=== PATIENT | female | born 1985 | race Caucasian/White ===

== ENCOUNTER 2017-01-12 18:33 | Observation (INO) ==
[2017-01-12] MEDS ORDERED: IOPAMIDOL 100 ML BOTTLE IJ ONE (18:34)
[2017-01-12] MEDS ORDERED: HYDROmorphone 2 MG/ML SYRINGE IV PRN (18:57)
[2017-01-12] MEDS ORDERED: 0.9 % SODIUM CHLORIDE 2,000 ML IV ONE (18:57)
[2017-01-12] MEDS ORDERED: ONDANSETRON 4 MG/2 ML VIAL IV ONE ×2 (18:57→21:02)
[2017-01-12 19:54] LABS: Basophils # (Auto) 0 K/mcL (0.0-0.3); Basophils % (Auto) 0.3 % (0.0-2.0); Eosinophils # (Auto) 0.3 K/mcL (0.0-0.7); Eosinophils % (Auto) 2.1 % (0.0-7.0); Granulocytes % (Auto) 58.9 % (38.0-78.0); Lymphocytes # (Auto) 4.9 K/mcL (1.5-4.8); Lymphocytes % (Auto) 32.7 % (15.5-49.0); Mean Cell Volume 91.4 fL (80.0-100.0); Mean Corpuscular HGB Conc 33.5 g/dL (31.0-36.0); Mean Corpuscular Hemoglobin 30.6 pg (26.0-34.0); Monocytes # (Auto) 0.9 K/mcL (0.1-0.9); Platelet Count 405 K/mcL (140-440); RBC 4.63 M/mcL (4.00-5.20); Red Cell Distribution Width 13.4 % (11.5-14.5)
[2017-01-12 20:07] LABS: ALT/SGPT 12 U/l (0-40); Albumin 4.5 gm/dL (3.2-5.2); Albumin/Globulin Ratio 1.4 (1.0-2.3); Alkaline Phosphatase 89 U/L (39-117); Blood Urea Nitrogen 14 mg/dl (6-20); Lipase 28 U/L (7-60)
--- NOTE | 2017-01-12 20:41 | Emergency Department Note ---
GI Bleed HPI - General Chief complaint: Rectal Bleed Stated complaint: Rectal bleed Time Seen by Provider: 01/12/17 18:34 Source: patient Mode of arrival: ambulatory Limitations: no limitations - History of Present Illness HPI Narrative: 31-year-old female with a cramping belly pain since this morning. She is also complaining of blood clots with diarrhea and maroon colored blood in stool all day today. No fevers but having some hot flashes and headache bilateral temples. She denies any recent hemorrhoids but did have them with her second child. No shortness of breath dysuria or other symptoms - Related Data Home Medications Medication Instructions Recorded Confirmed Bupropion Unknown Dose 01/12/17 Estradiol [Estrace] 1 mg PO DAILY 01/12/17 01/12/17 lamoTRIgine [Lamictal] 200 mg PO HS 01/12/17 01/12/17 Allergies Allergy/AdvReac Type Severity Reaction Status Date / Time Amoxicillin [From Augmentin] AdvReac Intermediate Rash Verified 01/12/17 18:36 clavulanic acid AdvReac Intermediate Rash Verified 01/12/17 18:36 [From Augmentin] latex AdvReac Intermediate Rash Verified 01/12/17 18:36 prednisone AdvReac Intermediate Muscle Pain Verified 01/12/17 18:36 ropinirole AdvReac Intermediate Confusion Verified 01/12/17 18:36 Review of Systems All systems ED: reviewed and negative except as stated. Past Medical History - Past Medical History Attestation: Yes: The following information was validated with the patient. Medical history: Reports: no medical history Surgical history ED: Reports: appendectomy, cholecystectomy, hysterectomy, orthopedic, other (Bilateral carpal tunnel) BARTENDERS history: Reports: bilateral tubal ligation - Social History smoking status: Current every day smoker Physical Exam Normocephalic atraumatic. Conjunctive clear sclerae nonicteric. No nasal discharge or congestion. Oropharynx pink and moist. Neck is supple without lymphadenopathy or thyromegaly. Heart is regular rate and rhythm no murmur appreciated. Lungs are clear to auscultation bilaterally without wheezes rales rhonchi or respiratory distress. Abdomen is soft mildly diffusely tender but no point tenderness. No distention rigidity peritoneal signs. No CVA tenderness. Rectal exam shows old hemorrhoid tag externally. Possible internal hemorrhoids palpated as well but unclear. Hemoccult positive but unnecessary with small clots on digital exam. No pedal edema. +2 radial pulse. Alert and oriented. No dysarthria ataxia or tremor - General Limitations: no limitations Course Vital Signs Temperature 97.3 F 01/12/17 18:34 Pulse Rate 84 01/12/17 18:34 Respiratory Rate 16 01/12/17 18:34 Blood Pressure 132/85 01/12/17 18:34 Pulse Oximetry (%) 97 01/12/17 18:34 Temperature 97.3 F 01/12/17 18:34 Pulse Rate 73 01/12/17 21:01 Respiratory Rate 16 01/12/17 18:34 Blood Pressure 108/63 01/12/17 21:01 Pulse Oximetry (%) 96 01/12/17 21:01 GI Bleed - Lab Data Lab results reviewed: Yes I reviewed the patient's lab results. Result diagrams: 01/12/17 19:14 01/12/17 19:14 Lab Results 01/12/17 01/12/17 01/12/17 Range/Units 19:14 19:14 19:14 WBC 15.1 H (4.5-11.0) K/mcL RBC 4.63 (4.00-5.20) M/mcL Hgb 14.2 (12.0-15.0) g/dL Hct 42.3 (36.0-48.0) % POC Hct 41.0 (36.0-48.0) % MCV 91.4 (80.0-100.0) fL MCH 30.6 (26.0-34.0) pg MCHC 33.5 (31.0-36.0) g/dL RDW 13.4 (11.5-14.5) % Plt Count 405 (140-440) K/mcL MPV 8.0 (7.4-10.4) fL Gran % 58.9 (38.0-78.0) % Lymph % (Auto) 32.7 (15.5-49.0) % [place] % (Auto) 6.0 (1.0-12.0) % Eos % (Auto) 2.1 (0.0-7.0) % Baso % (Auto) 0.3 (0.0-2.0) % Gran # 8.9 H (1.8-8.0) K/mcL Lymph # (Auto) 4.9 H (1.5-4.8) K/mcL [place] # (Auto) 0.9 (0.1-0.9) K/mcL Eos # (Auto) 0.3 (0.0-0.7) K/mcL Baso # (Auto) 0 (0.0-0.3) K/mcL POC PT 12.2 (11.9-14.5) sec POC INR 1.0 (0.9-1.2) VBG Lactic Acid (0.5-2.2) mmol/L POC Sodium 139 (133-145) mmol/L Sodium 137 (133-145) mmol/L POC Potassium 3.6 (3.3-5.1) mmol/L Potassium 3.9 (3.3-5.1) mmol/L POC Chloride 101 (96-108) mmol/L Chloride 98 (96-108) mmol/L Carbon Dioxide 27 (22-30) mmol/L POC Total CO2 27 (22-30) mmol/L Anion Gap 12.0 (8-16) POC BUN 13 (6-20) mg/dl BUN 14 (6-20) mg/dl Creatinine 0.8 (0.6-1.1) mg/dl POC Creatinine 0.8 (0.6-1.1) mg/dl GFR Calculation 97 Glucose 102 (70-105) mg/dL POC Glucose 98 (70-105) mg/dL Calcium 9.3 (8.6-10.4) mg/dl POC WB Ioniz Calcium 1.13 L (1.16-1.32) mmol/L Total Bilirubin < 0.2 (0.0-1.0) mg/dL AST 14 (0-37) U/l ALT 12 (0-40) U/l Alkaline Phosphatase 89 (39-117) U/L Total Protein 7.7 (5.9-8.4) gm/dL Albumin 4.5 (3.2-5.2) gm/dL Globulin 3.2 (2.2-3.7) gm/dL Albumin/Globulin Ratio 1.4 (1.0-2.3) Lipase 28 (7-60) U/L // Range/Units 19:14 WBC (4.5-11.0) K/mcL RBC (4.00-5.20) M/mcL Hgb (12.0-15.0) g/dL Hct (36.0-48.0) % POC Hct (36.0-48.0) % MCV (80.0-100.0) fL MCH (26.0-34.0) pg MCHC (31.0-36.0) g/dL RDW (11.5-14.5) % Plt Count (140-440) K/mcL MPV (7.4-10.4) fL Gran % (38.0-78.0) % Lymph % (Auto) (15.5-49.0) % [place] % (Auto) (1.0-12.0) % Eos % (Auto) (0.0-7.0) % Baso % (Auto) (0.0-2.0) % Gran # (1.8-8.0) K/mcL Lymph # (Auto) (1.5-4.8) K/mcL [place] # (Auto) (0.1-0.9) K/mcL Eos # (Auto) (0.0-0.7) K/mcL Baso # (Auto) (0.0-0.3) K/mcL POC PT (11.9-14.5) sec POC INR (0.9-1.2) VBG Lactic Acid 0.8 (0.5-2.2) mmol/L POC Sodium (133-145) mmol/L Sodium (133-145) mmol/L POC Potassium (3.3-5.1) mmol/L Potassium (3.3-5.1) mmol/L POC Chloride (96-108) mmol/L Chloride (96-108) mmol/L Carbon Dioxide (22-30) mmol/L POC Total CO2 (22-30) mmol/L Anion Gap (8-16) POC BUN (6-20) mg/dl BUN (6-20) mg/dl Creatinine (0.6-1.1) mg/dl POC Creatinine (0.6-1.1) mg/dl GFR Calculation Glucose (70-105) mg/dL POC Glucose (70-105) mg/dL Calcium (8.6-10.4) mg/dl POC WB Ioniz Calcium (1.16-1.32) mmol/L Total Bilirubin (0.0-1.0) mg/dL AST (0-37) U/l ALT (0-40) U/l Alkaline Phosphatase (39-117) U/L Total Protein (5.9-8.4) gm/dL Albumin (3.2-5.2) gm/dL Globulin (2.2-3.7) gm/dL Albumin/Globulin Ratio (1.0-2.3) Lipase (7-60) U/L - Radiology Data Radiology results reviewed: Yes I reviewed the patient's radiology results. CT scan of the abdomen pelvis with contrast shows descending colon thickening consistent with colitis. No abscess or other pathology seen Disposition Pt seen by TAPE RECORDER MECHANIC/PA only: No Clinical Impression: Lower gastrointestinal hemorrhage, Colitis Summary: Initially worked up with laboratory and CT scan of the abdomen and pelvis with contrast for rectal bleed. Started Zofran pain medicine and IV fluids in the interim She is symptomatic with lightheadedness, headache, crampy abdominal pain. Elevated white blood cell count of 15 in the setting of CT scan showing descending colitis. Discussed scenario with Dr. Sahu in GI. Suspect infectious colitis versus inflammatory bowel disease versus hemorrhoids. Symptomatology plus white count suggest infectious cause-stool culture already ordered with C. difficile. He suggested that we could do further workup as an outpatient however the patient is still symptomatic with cramping and lightheadedness and so I am uncomfortable with sending her home. He is agreeable to being available for further consultation/care and workup as needed I discussed the scenario further with Dr. Momo Boothe, hospitalist-expressing my concerns, he agreed to accept the patient for further care and recommended we start IV antibiotics for infectious colitis. IV ciprofloxacin and Flagyl ordered in the ER Disposition: Xfer As Inpt ([facility]) Condition: Serious Referrals: Mere Barragan ARNP [Primary Care Provider] - Bartolome Sahu DO [Physician] -
[2017-01-12] MEDS ORDERED: HYDROmorphone 2 MG/ML SYRINGE ONE (21:00)
[2017-01-12] MEDS ORDERED: ONDANSETRON 4 MG/2 ML VIAL ONE (21:01)
[2017-01-12] MEDS ORDERED: HYDROmorphone 2 MG/ML SYRINGE IV ONE (21:02)
[2017-01-12] MEDS ORDERED: metroNIDAZOLE 500 MG/100 ML BAG IV ONE ×2 (21:41→22:14)
[2017-01-12] MEDS ORDERED: CIPROFLOXACIN 400 MG/200 ML BAG IV ONE (21:41)
--- NOTE | 2017-01-12 22:57 | Internal Med History&Physical ---
Medical - H&P: HPI Patient information: Note initiated : 01/12/17 at 10:52 pm Service Date, if different from initiated Date: [] Patient: Magdalena Davis a 31 y/o F admitted on for Rectal bleed. Chief Complaint: [Rectal bleeding] History of present illness: Ms. Davis is a 31 year old F who presents to the emergency room with several hours of abdominal pain and passing blood per rectum. History is obtained speaking with the patient, as well as limited old records which are obtained. Patient developed abdominal cramps this morning. They're moderate to severe. She gets sweaty and weak with the cramps because of the pain. She felt nauseated but did not have emesis. About 2:30 this afternoon she started passing blood in her stool, then started passing clots and blood. She had 3-4 episodes of this. She presented to the emergency department because of these findings. In the ED she continued to have crampy abdominal pain, then was able to pass some stool and not rafat blood. In the emergency department, evaluation included CT scan which showed colitis of the descending colon. White count was elevated 15,000, but hemoglobin was normal. Chemistries were generally unremarkable. Surgical Dressing Maker was consult to via phone. He did not feel endoscopy is indicated at this time, could see the patient in the office to follow up her colitis. Because of the clots and blood loss noted in the ED, prior to having normal bowel movement, is contacted about hospitalization for observation. Location: Abdomen. Severity: Moderate. Timing; Several hourswith onset today. Associated symptoms: Nausea, hematochezia. Patient has no history of GI blood loss. She has no history of colitis. Family history of inflammatory bowel disease or other GI problems, except an aunt did have a GI malignancy of some kind. She's had no ill contacts. No one at home is sick. She's felt tired for the last few days, had a migraine headache yesterday. She has had no appetite today. She denies any chest pain, no dyspnea, no orthostatic symptoms. Urine output is been normal. No headache , sore throat, rhinorrhea, cough or sputum production. Review of systems: Except as noted in history of present illness the remainder for 9 point review of systems is negative Medical - H&P: PMH Medical history: Bipolar disorder Fibroids, status post hysterectomy Endometriosis, status post hysterectomy History of sepsis secondary to surgical site infection Surgical history: Status post cholecystectomy Status post appendectomy Status post hysterectomy for fibroids and endometriosis Pertinent family history: No family history of inflammatory bowel disease or other forms of colitis. She did have an aunt who of a GI malignancy of some kind. Social history: Smokes about 1 pack per day. Has rare alcoholic drink. (Buproprion dose below is 150 mg of XL daily) Medical - H&P: Meds Home Medications Medication Instructions Recorded Confirmed Type Bupropion Unknown Dose 01/12/17 History Estradiol [Estrace] 1 mg PO DAILY 01/12/17 01/12/17 History lamoTRIgine [Lamictal] 200 mg PO HS 01/12/17 01/12/17 History Allergies Allergy/AdvReac Type Severity Reaction Status Date / Time ciprofloxacin [From Cipro] Allergy Intermediate Rash Verified 01/12/17 22:20 Amoxicillin [From Augmentin] AdvReac Intermediate Rash Verified 01/12/17 18:36 clavulanic acid AdvReac Intermediate Rash Verified 01/12/17 18:36 [From Augmentin] latex AdvReac Intermediate Rash Verified 01/12/17 18:36 prednisone AdvReac Intermediate Muscle Pain Verified 01/12/17 18:36 ropinirole AdvReac Intermediate Confusion Verified 01/12/17 18:36 Medical - H&P: Exam - Constitutional Vitals: Temp Pulse Resp BP Pulse Ox 97.3 F 73 16 108/63 96 01/12/17 18:34 01/12/17 21:01 01/12/17 18:34 01/12/17 21:01 01/12/17 21:01 - Other Additional findings: General: Alert, uncomfortable mild distress HEENT: Normocephalic. Pupils are equally round and reactive to light. Sclera are anicteric. No conjunctival injection. Oropharynx is with moist mucous membranes, no lip or gum lesions. Tongue is midline. Neck: Supple, no meningismus. No thyromegaly. Chest: Clear to auscultation bilaterally with no rales or wheezes. No accessory muscle use. Cardiovascular: Regular rate and rhythm without murmur gallop or rub. Carotid pulses are 2+ without bruit. There is no lower extremity edema. JVP is normal. Abdomen: Soft, mild to moderate tenderness in the left abdominal region, without guarding or rebound. Active bowel sounds. No hepatosplenomegaly. Rectal exam performed in the ED showed blood with some clots. Lymphatic: No cervical or supraclavicular lymphadenopathy. Skin: Warm, dry. Skin turgor is normal Musculoskeletal: No joint erythema or tenderness. Normal range of motion in the upper and lower extremities. Strength 5/5 in upper and lower extremities. Digits without cyanosis or clubbing. Neuro: Alert, oriented X3. Cranial nerves II through XII grossly intact. Sensation intact to light touch. Psychiatric: Affect and orientation are normal. Good insight. Medical - H&P: Reslt - Labs CBC & Chem 7: 01/12/17 19:14 01/12/17 19:14 Labs: Short CBC 01/12/17 Range/Units 19:14 WBC 15.1 H (4.5-11.0) K/mcL Hgb 14.2 (12.0-15.0) g/dL Hct 42.3 (36.0-48.0) % Plt Count 405 (140-440) K/mcL BMP 01/12/17 19:14 Sodium 137 Potassium 3.9 Chloride 98 Carbon Dioxide 27 BUN 14 Creatinine 0.8 Glucose 102 Calcium 9.3 Liver Function 01/12/17 Range/Units 19:14 Total Bilirubin < 0.2 (0.0-1.0) mg/dL AST 14 (0-37) U/l ALT 12 (0-40) U/l Alkaline Phosphatase 89 (39-117) U/L Albumin 4.5 (3.2-5.2) gm/dL Medical - H&P: A/P - Narrative A/P Narrative: 31-year-old female presents with abrupt onset of crampy abdominal pain, hematochezia with a few clots. Found to have colitis on CT scan. Leukocytosis without evidence of sepsis. Hemodynamically stable. Colitis. Suspect infectious colitis. Stool studies have been ordered in the emergency department. Less likely IBD, unlikely Plan: -Ceftriaxone (has allergy to Cipro) and metronidazole. -Hydration -Clear liquid diet -Pain control -Nausea control Hematochezia/lower GI bleed. Suspect secondary to colitis and likely self- limited. However given clots and some bleeding on exam in the ED will be monitored overnight. Hemodynamically stable. Low suspicion for upper GI bleed. She was starting to have formed stool again in the emergency department. Plan: -Monitor for ongoing bleeding -Follow hemoglobin though suspect will drop somewhat with hydration Bipolar disorder, stable Plan: Continue home meds
[2017-01-12] MEDS ORDERED: ONDANSETRON 4 MG/2 ML VIAL IV PRN (23:19)
[2017-01-12] MEDS ORDERED: POTASSIUM CHLORIDE 20 MEQ in 0.9 % SODIUM CHLORIDE 1,000 ML IV SCH (23:19)
[2017-01-12] MEDS ORDERED: ACETAMINOPHEN 325 MG TABLET PO PRN (23:19)
[2017-01-12] MEDS ORDERED: cefTRIAXone 1 GM in DEXTROSE 5% IN WATER 50 ML IV SCH (23:19)
[2017-01-12] MEDS ORDERED: PROCHLORPERAZINE 10 MG/2 ML VIAL IV PRN (23:19)
[2017-01-12] MEDS ORDERED: HYDROcodone/APAP 5/325MG TABLET PO PRN (23:19)
[2017-01-12] MEDS ORDERED: POTASSIUM CHLORIDE 20 MEQ/10 ML VIAL IV ONE (23:28)
[2017-01-12] MEDS ORDERED: cefTRIAXone 1 GM VIAL ONE (23:28)
[2017-01-13] MEDS ORDERED: metroNIDAZOLE 500 MG/100 ML BAG IV SCH (06:00)
[2017-01-13] MEDS ORDERED: 0.9 % SODIUM CHLORIDE 10 ML SYRINGE IV SCH (06:00)
[2017-01-13 06:50] LABS: Mean Cell Volume 91.8 fL (80.0-100.0); Mean Corpuscular Hemoglobin 31.2 pg (26.0-34.0); Platelet Count 390 K/mcL (140-440); RBC 4.29 M/mcL (4.00-5.20); Red Cell Distribution Width 13.1 % (11.5-14.5)
[2017-01-13] MEDS ORDERED: NACL 0.9% W/KCL 20MEQ 1,000 ML IV SCH (07:00)
[2017-01-13 07:17] LABS: ALT/SGPT 29 U/l (0-40); Albumin 3.8 gm/dL (3.2-5.2); Albumin/Globulin Ratio 1.4 (1.0-2.3); Alkaline Phosphatase 95 U/L (39-117); Bilirubin,Direct < 0.2 mg/dL (0.0-0.3); Blood Urea Nitrogen 8 mg/dl (6-20); Gamma Glutamyl Transpeptidase 50 U/L (5-36); Magnesium 2.1 mg/dL (1.6-2.5)
[2017-01-13] MEDS ORDERED: PANTOPRAZOLE 40 MG TABLET PO SCH (07:30)
--- NOTE | 2017-01-13 07:51 | Cat Scan Report ---
CLINICAL INFORMATION: Reason for Exam:GI BLEED with abdominal cramping COMPARISON: None. TECHNIQUE: Following injection of intravenous contrast the patient was scanned during the portal venous phase from the diaphragm through the symphysis pubis. Sagittal and coronal reformats were created.. FINDINGS: There are small bands of discoid atelectasis in the inferior segment of lingula. The liver and spleen are normal in size and homogeneous. The gallbladder has been removed and the bile ducts are nondilated. The pancreas is normal in size and homogeneous. The adrenals and kidneys are normal. There is no evidence of kidney stone or hydronephrosis. The appendix, uterus and ovaries have been removed. No mass, ascites or adenopathy are present within the abdomen or pelvis. There is oral contrast pass through normal stomach and duodenum and jejunum to proximal ileum. Distal ileum is unopacified. Multilevel of the terminal ileum the small bowel is borderline thickened. I cannot determine whether the lumen is filled with radiopaque material or the wall is abnormally thickened. There is a lipoma at the ileocecal valve. This is an incidental finding. In the mid and distal segment of the descending colon there are segments where the wall is abnormally thickened and edematous. There is no surrounding stranding of the fat and no diverticula are present. Large and small bowel are nondilated. Distal sigmoid and rectum appear normal. Urinary bladder is decompressed. IMPRESSION: Mildly thickened wall of the descending and proximal sigmoid colon which could be due to inflammatory bowel disease or colitis. Borderline thickened wall of the terminal ileum. This raises the possibility of Crohn's disease. Dr. Johnson was called with results Interpreted and Authenticated by: Jose Parker 01/13/17
[2017-01-13] MEDS ORDERED: ENOXAPARIN 40 MG/0.4 ML SYRINGE SQ SCH (09:00)
[2017-01-13] MEDS ORDERED: buPROPion 150 MG TAB.XL.24H PO SCH (09:00)
[2017-01-13] MEDS ORDERED: lamoTRIgine 100 MG TABLET PO SCH (09:00)
[2017-01-13] MEDS ORDERED: ESTRADIOL 1 MG TABLET PO SCH (09:00)
[2017-01-13] MEDS ORDERED: NICOTINE 14 MG PATCH TOPICAL SCH (10:00)
[2017-01-13 10:10] LABS: Eosinophils % (Manual) 3 % (0-7); Lymphocytes % 30 % (15-49); Monocytes % (Manual) 4 % (1-12); Platelet Estimate NORMAL (NORMAL); RBC Morphology NORMAL (NORMAL); Segmented Neutrophils % 62 % (38-78)
--- NOTE | 2017-01-13 11:45 | Discharge Summary ---
Medical - DS: Prov Patient information: Note initiated : 01/13/17 at 11:42 am Service Date, if different from initiated Date: [] Patient: Magdalena Davis 31 y/o F admitted on 01/12/17 for Rectal bleed. Chief Complaint: [] Date of admission: 01/12/17 23:11 Discharge date: 01/13/17 Primary care physician: Mere Barragan Attending physician on admission: Miranda Serrato Attending physician on discharge: Miranda Serrato Medical - DS: Meds - Discharge Medications Prescriptions: Cefuroxime Axetil [Cefuroxime] 500 mg PO BID #14 tablet HYDROcodone/ACETAMINOPHEN [Hydrocodon-Acetaminophen 5-325] 1 each PO Q4-6HP PRN #20 tablet PRN Reason: Pain metroNIDAZOLE [Metronidazole] 500 mg PO Q8 #21 tablet Ondansetron [Zofran Odt] 8 mg PO Q6HP PRN #20 tab.rapdis PRN Reason: Nausea Active and Home Medications: Home Medications Bupropion Unknown Dose 150 mg PO DAILY 01/12/17 [History Confirmed 01/13/17 Last Taken 01/11/17 21:00 150] Estradiol [Estrace] 1 mg PO DAILY 01/12/17 [History Confirmed 01/12/17 Last Taken Unknown] lamoTRIgine [Lamictal] 200 mg PO HS 01/12/17 [History Confirmed 01/12/17 Last Taken Unknown] Medical - DS: Hosp Hospital course: Ms. Davis is a 31 year old F who presents to the emergency room with several hours of abdominal pain and passing blood per rectum. Patient developed abdominal cramps the morning of admission. They're moderate to severe. She gets sweaty and weak with the cramps because of the pain. She felt nauseated but did not have emesis. About 2:30 on the afternoon of admission, she started passing blood in her stool, then started passing clots and blood. She had 3-4 episodes of this. She presented to the emergency department because of these findings. Evaluation in the ED showed leukocytosis and colitis on CT scan of the abdomen. In the ED she continued to have crampy abdominal pain, had some blood clots and blood on rectal exam. However, then was able to pass some stool and not rafat blood. She was hospitalized in observation to monitor for ongoing GI blood loss secondary to her colitis. Overnight she had bowel movements that were only minimally bloody. Hemoglobin remained stable without evidence of ongoing blood loss. She is still having some crampy abdominal pain, but is tolerating liquids and her symptoms are controlled with oral medications. This likely represents an acute infectious colitis. Clostridium difficile testing was negative, stool cultures have been sent and are pending. Patient is stable to be discharged on oral antibiotics, [place] for pain control and Zofran as needed for nausea. She's been advised to follow a low residue diet, slowly advance her diet and follow-up with primary care next week. CT scan in addition to inflammatory change in the descending and proximal sigmoid colon showed borderline enlargement of the terminal helium. Consider referral to gastroenterology, though abrupt onset of symptoms and course would suggest an infectious colitis and not IBD. On-call GI discuss the case with the ED physician, he can also see her in the office if needed. Discharge diagnosis: Colitis Secondary discharge diagnosis: Lower GI bleed secondary to colitis, resolved Medical - DS: Exam - Constitutional Vitals: Vital Signs Temp Pulse Resp BP Pulse Ox 01/13/17 11:07 98.2 F 16 113/73 95 01/13/17 07:55 97.8 F 16 101/66 95 01/13/17 07:30 96 01/13/17 04:00 97.5 F 76 14 109/65 95 01/12/17 23:18 97.4 F 77 14 103/69 96 Intake and Output 01/12/17 01/13/17 01/13/17 21:59 05:59 13:59 Intake Total 400 / 400 Output Total 400 / 400 Balance 400 / 400 -400 / -400 Intake: IV 100 / 100 Oral 300 / 300 Output: Void Amount 400 / 400 Other: # Voids 1 # Bowel Movements 1 Weight 175 lb 8 oz - Other Additional findings: General: Appears more comfortable today, still mildly ill-appearing Chest: Clear Cardiac vascular: Regular Abdomen: Soft, active bowel sounds, mild left abdominal tenderness to palpation without guarding or rebound. Neuro: Alert, oriented, nonfocal Medical - DS: Data Procedures and tests throughout hospitalization: CT of abdomen and pelvis IMPRESSION: Mildly thickened wall of the descending and proximal sigmoid colon which could be due to inflammatory bowel disease or colitis. Borderline thickened wall of the terminal ileum. This raises the possibility of Crohn's disease. Labs on day of discharge: Labs from last 24 hours 01/13/17 01/13/17 01/13/17 10:01 05:38 05:38 WBC 11.3 H RBC 4.29 Hgb 13.5 13.4 Hct 40.8 39.4 MCV 91.8 MCH 31.2 MCHC 34.0 RDW 13.1 Plt Count 390 MPV 7.9 Total Counted 100 Seg Neutrophils % 62 Band Neutrophils % Not Reportable Lymphocytes % 30 Monocytes % (Manual) 4 Eosinophils % (Manual) 3 Reactive Lymphocytes 1 Platelet Estimate Normal RBC Morphology Normal Sodium 139 Potassium 4.0 Chloride 103 Carbon Dioxide 25 Anion Gap 11.0 BUN 8 Creatinine 0.7 GFR Calculation 114 Glucose 90 Uric Acid 5.0 Calcium 8.4 L Phosphorus 3.4 Magnesium 2.1 Total Bilirubin 0.3 Direct Bilirubin < 0.2 GGT 50 H AST 33 ALT 29 Alkaline Phosphatase 95 Lactate Dehydrogenase 159 Total Protein 6.5 Albumin 3.8 Globulin 2.7 Albumin/Globulin Ratio 1.4 Triglycerides 80 Medical - DS: A/P - Patient/Caregiver Discharge Instructions Activity: increase activity as tolerated Diet: Full Liquid (advance as tolerated, low residue for 1 week) Additional Instructions: Follow-up with primary care next week. If you have worsening abdominal pain, worsening bleeding, return to the emergency department for evaluation. Prescriptions: Cefuroxime Axetil [Cefuroxime] 500 mg PO BID #14 tablet HYDROcodone/ACETAMINOPHEN [Hydrocodon-Acetaminophen 5-325] 1 each PO Q4-6HP PRN #20 tablet PRN Reason: Pain metroNIDAZOLE [Metronidazole] 500 mg PO Q8 #21 tablet Ondansetron [Zofran Odt] 8 mg PO Q6HP PRN #20 tab.rapdis PRN Reason: Nausea - Follow up Plan Follow up with: Mere Barragan ARNP [Primary Care Provider] - Bartolome Sahu DO [Physician] - Disposition: Home, Self-Care Prognosis: Good Rehab Potential: Good Overall status at discharge: patient is not back to baseline Medical - DS: Qual - VTE Deep Vein Thrombosis/Pulmonary Embolism Present on Admission: No
[2017-01-13] MEDS ORDERED: cefTRIAXone 1 GM in DEXTROSE 5% IN WATER 50 ML IV SCH (14:00)
== END 2017-01-13 13:15 | disposition home or self-care (01) ==
LOC: ED 18:33 → MEDSUR 18:33
PROVIDERS: ADMIT Internal Medicine; ATTEND Internal Medicine